=== PATIENT | male | born 1980 | race Asian ===

== ENCOUNTER 2020-10-23 03:42 | Emergency (ER) | payer BC ==
[~2020-10-23] VITALS: Ht 170.2 cm; Wt 70.3 kg
[2020-10-23 03:50] VITALS: BP_SYST 137
[2020-10-23] MEDS ORDERED: NACL 0.9% 1,000 ML IV ONE (04:15)
[2020-10-23 04:25] LABS: BILIRUBIN,URINE NEGATIVE (NEGATIVE); BLOOD, URINE 1+ (NEGATIVE); CLARITY/URINE CLEAR (CLEAR); COLOR,URINE YELLOW (YELLOW); GLUCOSE,URINE NEGATIVE (NEGATIVE); KETONES,URINE NEGATIVE (NEGATIVE); LEUKOCYTE ESTERASE ,URINE NEGATIVE (NEGATIVE); NITRITE, URINE NEGATIVE (NEGATIVE); PROTEIN URINE NEGATIVE (NEGATIVE); UROBILINOGEN,URINE 0.2 (0.2-1.0)
[2020-10-23 04:28] LABS: CALCIUM 8.4 mg/dL (8.4-11.0); CREATININE 0.82 mg/dL (0.55-1.30); POTASSIUM 3.6 mmol/L (3.5-5.1)
[2020-10-23 04:33] LABS: ALBUMIN 3.9 g/dL (3.4-4.8)
[2020-10-23 04:38] LABS: EOSINOPHILS # (AUTO) 0.1 K/uL (0.0-0.4); MEAN CORPUSCULAR HGB CONC 31 % (32-36)
[2020-10-23 04:48] LABS: BASOPHILS % (AUTO) 0.2 % (0.0-2.0); EOSINOPHILS % (AUTO) 1.2 % (0.0-4.0); HEMATOCRIT 40.5 % (36-54); HEMOGLOBIN 12.5 g/dL (14.0-18.0); MEAN CORPUSCULAR HEMOGLOBIN 22 pg (27-31); MEAN CORPUSCULAR VOLUME 70 fL (79.0-98.0); MONOCYTES # (AUTO) 0.6 K/uL (0.0-1.0); MONOCYTES % (AUTO) 5.6 % (1.7-9.3); NEUTROPHILS # (AUTO) 8.3 K/uL (1.8-7.7); PLATELET COUNT (AUTO) 280 K/uL (130-430); RED BLOOD CELL COUNT(AUTO) 5.81 MIL/uL (4.2-6.2); RED CELL DISTRIBUTION WIDTH 14.6 % (9.0-15.0)
[2020-10-23 05:08] LABS: BACTERIA,URINE FEW /HPF (None Seen); WBC,URINE 0-3 /HPF (0-3)
[2020-10-23] MEDS ORDERED: METR500T PO (05:43)
[2020-10-23] MEDS ORDERED: metroNIDAZOLE 500 MG TABLET PO ONE (05:45)
[2020-10-23] MEDS ORDERED: IBUPROFEN 600 MG TABLET PO ONE (05:45)
[2020-10-23 05:55] VITALS: BP_SYST 125
== END 2020-10-23 05:58 | disposition home or self-care (01) ==
LOC: SED 03:42
DX: K52.9 Noninfective gastroenteritis and colitis, unspecified (principal); R10.13 Epigastric pain; E03.9 Hypothyroidism, unspecified
CPT/HCPCS: 36415; 71045; 80053; 81000; 82272; 83605; 83690; 85025; 87040; 87230; 89055; 96360; 96361; 99284; J7030